=== PATIENT | male | born 1940 | race Caucasian/White ===

== ENCOUNTER 2017-08-27 10:22 | Observation (INO) | payer OTHER ==
[2017-08-27] VITALS (10 sets, daily range): BP systolic 115–151; BP diastolic 60–80
[~2017-08-27] VITALS: Ht 182.9 cm; Wt 108.0 kg
--- NOTE | ~2017-08-27 | H ---
[address] [address] HISTORY AND PHYSICAL Name: ASHLEE KAUR Room: [address] Jerome Hoffmann#: [id number] Admission: 08/27/17 Attend Phys: Jonatan Barnes MD, F Discharge: 08/28/17 Date of : 38 Report #: [id number] THIS REPORT FOR: //name// Please refer to the History and Physical performed in the physician's office. By: [id number] Records Staff ARGELIA /FRANCO
[~2017-08-27 10:22] MED LIST: ASPIR 8181 MG PO; BENTYL 10 MG CA10 M1 PO; CRESTOR10 MG PO; FISH OIL 1,001000 M2 PO; LOPRESSOR100 M1 PO; LOSARTAN-HCTZ1 EAC3 PO; MULTI-VITAMIN1 EAC5 PO; NITROGLYCERIN0.4 MG SUBLING; NITROSTAT0.4 M1 SL; PLAVIX 75 MG TA75 M1 PO; TYLENOL325 MG PO; ZANTAC 150MG T150 MG PO
[2017-08-27 11:11] LABS: HEMATOCRIT 42.8 % (42.0-52.0); HEMOGLOBIN 14.4 gm/dL (14.0-18.0); MCHC 33.6 g/dL (28.0-37.0); MCV 92.1 fL (80.0-100.0); RBC 4.64 mil/uL (4.50-6.00); RDW-CV 12.8 % (10.5-14.5); WBC 8.8 thou/uL (4.0-11.0)
[2017-08-27 11:19] LABS: ANION GAP 6 mmol/L (7-16); BUN 23 mg/dL (7-18); CALCIUM 9.4 mg/dL (8.5-10.1); CHLORIDE 102 mmol/L (98-107); CO2 33 mmol/L (21-32); CREATININE 0.9 mg/dL (0.6-1.3); GLUCOSE 107 mg/dL (70-99); POTASSIUM 4.1 mmol/L (3.5-5.1); SODIUM 141 mmol/L (136-145)
[2017-08-27 11:20] LABS: APTT 26.5 Seconds (25.0-31.3)
[2017-08-27 11:23] LABS: ALBUMIN 3.5 g/dL (3.4-5.0); ALKALINE PHOSPHATASE 65 U/L (46-116); CHOLESTEROL 115 mg/dL (<200); HDL CHOLESTEROL 50 mg/dL (>40); LDL CHOLESTEROL 45 mg/dL (<100); SGOT 22 U/L (15-37); SGPT 29 U/L (30-65); TC:HDL 2.3 Ratio (Not establshd); TOTAL BILIRUBIN 0.4 mg/dL (<0.1-1.0); TOTAL PROTEIN 7.3 g/dL (6.4-8.2); TRIGLYCERIDE 101 mg/dL (<150); VLDL 20 mg/dL (<40)
[2017-08-27 11:24] LABS: SERUM ASSESSMENT Clear
--- NOTE | 2017-08-27 17:15 | CARD ---
[address] [address] CARDIAC CATH REPORT Name: ASHLEE KAUR Room: [address] M.R.#: [id number] Admission: 08/27/17 Attend Phys: Jonatan Barnes MD, F Discharge: Date of : 38 Report #: [id number] THIS REPORT FOR: //name// APPROVED REPORT Patient Details Patient Status: Out-Patient Room #: The patient is a 77 year-old male Event Personnel Dusty eJnsen Instrumentation Designer, Alia Ham RN Director Of Vital Statistics, Aaron Moran (R) Monitor, Cathy Hauser Blick, David Copy Clerk Procedures Performed cath pci Indication Stable angina , Positive stress test Risk Factors Coronary Artery Disease Previous Procedures/Diagnoses Previous PCI Admission/Lab Medications/Medications given during procedure Platelet Aff. Inhib., Heparin Unfract. Procedure Narrative The patient was brought electively to the Cardiac Catheterization Laboratory and was prepped and draped in a sterile manner. The right wrist was infiltrated with 1% Lidocaine subcutaneous anesthesia. A Slender Glidesheath sheath was inserted into the Right Radial Artery. Coronary angiography was performed using coronary diagnostic catheters. The right coronary system was accessed and visualized with a Diagnostic catheter. The left coronary system was accessed and visualized with a Diagnostic catheter. The left ventricle was accessed and visualized with a Diagnostic catheter. Left ventricular/Aortic Valve gradient assessed via catheter pullback. Left ventriculogram was performed in MOE projection. Closure device was deployed with a 6 Fr Vasc-Band Lng 27cm. The patient tolerated the procedure well and there were no complications associated with the procedure. There [place] [address] CARDIAC CATH REPORT Name: ASHLEE KAUR Room: [address]#: [id number] Admission: 08/27/17 Attend Phys: Jonatan Barnes MD, F Discharge: Date of : 38 Report #: [id number] Intraoperative Conscious Sedation Sedation start time: 12:38 Case end Time: 13:47 Fentanyl 25 mcg Versed 1 mg Fluoro Time: 17.2 minutes Dose: DAP [id number] cGycm2 3260 mGy Contrast Type and Amount: Omnipaque 300 ml Diagnostic Cath Left Main short,normal LAD mid 60-70 Diagonal 1 50% Circumflex stent widely patent <10% ISR, distal moderate disease 40-50% OM1 60% OM2 normal Right Coronary mid 70- 75%, stented proximal portion with 60% instent restenosis R PDA 60% RPLV sluggish timi2 flow Left Ventriculography The left ventricle is normal in size with normal contractility. The left ventricular ejection fraction is estimated to be 50-55%. Left ventricular wall motion abnormalities are present. There is no mitral insufficiency. inf. hypokinesis IVUS Anticoagulation was achieved with . Heparin Hemodynamics The aortic pressure is 103/56 mmHg with a mean of 78 mmHg. The left ventricular pressure is 97/2 mmHg with a mean of mmHg. The left ventricular end diastolic pressure is 7 mmHg. There was no gradient across the aortic valve upon pullback. Pullback from the left ventricle to the aorta revealed no gradient across the aortic valve. PCI Technique Lesion Anticoagulation was achieved with Heparin. Patient was preloaded with Heparin IV 5000 units. Percutaneous coronary intervention was performed on the distal right coronary artery. A 6F AL 1 Guide Catheter was used to engage the ostium. A IG: BMW 190cm Interventional Guidewire was used [place] [address] CARDIAC CATH REPORT Name: ASHLEE KAUR Room: [address] [facility]#: [id number] Admission: 08/27/17 Attend Phys: Jonatan Barnes MD, F Discharge: Date of : 38 Report #: [id number] BALLOON DILATION A Balloon catheter Mini Trek RX 2.0 X 8 was inserted and inflated up to 15.00atm for 13seconds. STENT DEPLOYMENT A drug-eluting stent Xience Alpine RX 3.0 X 12 was inserted and inflated up to 18.00atm for 22seconds. Additional Inflation: 22.00atm for 18seconds. Additional Inflation: 22.00atm for 10seconds. POST STENT DEPLOYMENT BALLOON DILATION A Balloon catheter NC Trek RX 3.25X8 was inserted and inflated up to 24.00atm for 27seconds. Additional Inflation: 24.00atm for 17seconds. Additional Inflation: 26.00atm for 21seconds. PCI Technique Lesion Anticoagulation was achieved with Heparin. iv aggrastat was given BALLOON DILATION A Balloon catheter was inserted and inflated up to 16atm for 15seconds. Repeat angiography revealed the following post-dilatation results: 50% stenosis. STENT DEPLOYMENT A drug-eluting stent 3.0 x 12 mm was inserted and inflated up to 20atm for 15seconds. Repeat angiography revealed the following post-stent deployment results: 40% stenosis. a 3.25 x 8 mm noncompliant balloon was inserted into the stent and inflated up to 22 mm Hg POST STENT DEPLOYMENT BALLOON DILATION A Balloon catheter NC Trek RX 3.5 X 8 was inserted and inflated up to 25.00atm for 34seconds. Repeat angiography revealed the following post-dilatation results: 30% stenosis. Additional Inflation: 25.00atm for 18seconds. Additional Inflation: 25.00atm for 15seconds. Final angiography reveals 30 % stenosis with DAVIDA 3 flow. COMMENTS Despite using a large noncompliant balloon and inflating to high atmospheres, the stent continued to demonstrate a residual 30% stenosis. It was decided not to make further efforts at expanding this stent in this vessel which was resistant to using a noncomplaint balloon and inflating to high pressures. There was a concern that additional efforts could lead to dissection [place] [address] CARDIAC CATH REPORT Name: ASHLEE KAUR Room: [address] [place] [facility]#: [id number] Admission: 08/27/17 Attend Phys: Jonatan Barnes MD, F Discharge: Date of : 38 Report #: [id number] be adequate. Conclusion 1. No restenosis of the stent in the circumflex artery. 2. Moderate restenosis of the stent in the proximal RCA. There was a significant stenosis in the distal rca beyond the acute margin, and the distal rca filled retrograde from collateral arising from the left coronary 3. Successful placement of a drug eluting stent in the distal rca, although residual stenosis was noted despite using a large noncompliant balloon inflated to high pressures. Recommendations Cardiac Rehabilitation Referral Aggressive Medical Therapy Medications Administered Clopidogrel Diagnostic Cath Approved by: Dusty Jensen MD Date/Time: <ELECTRONICALLY SIGNED> By: Jonatan Barnes MD, [facility] 08/27/17 1714 1714 1714Dmelva Barnes MD, FAC /INF
--- NOTE | 2017-08-27 18:50 | NUR ---
PT ARRIVED TO UNIT AT 1415 VIA [facility] INSULATION STAFF. PT A & O X4. PT ABLE TO TRANSFER FROM [facility] TO BATHROOM WITH SBA. PT AMBULATES WITH STEADY GAIT. TELEMONITOR TRACING SR WITH 1ST DEG BLOCK. PT HAS R RADIAL SITE WRISTBAND THAT IS C/D/I. AIR RELEASED WITHOUT ANY BLEEDING OR EVIDENCE OF HEMATOMA. PT ADHERENT TO KEEPING R ARM STATIONARY. ASSESSMENT COMPLETE. FLUIDS INFUSING PER ORDER. PT HEATHER DIET. VOIDING APPROPRIATELY. PT HAS NO C/O PAIN, SOA/NAUSEA OR DISTRESS. NEEDED ITEMS AND CALL LIGHT IN REACH.
[2017-08-28] VITALS: BP 134/69; BP 139/59
--- NOTE | 2017-08-28 03:09 | NUR ---
ASSUMED CARE OF PT AT 1900. PT IS ALERT AND ORIENTED. VSS. PERRLA. NO COMPLAINTS OF PAIN. NO BLEEDING OR HEMATOMA AT CATH SITE. PT IS IN SINUS RYTHM ON THE TELEMETRY. PT IS RESTING COMFORTABLY IN BED. RESPIRATIONS ARE EVEN AND NONLABORED. WILL CONTINUE TO MONITOR PT.
[2017-08-28 04:00] VITALS: BP 121/69
[2017-08-28 05:26] LABS: HEMATOCRIT 37.4 % (42.0-52.0); HEMOGLOBIN 12.8 gm/dL (14.0-18.0); MCH 31.5 pg (26.0-34.0); MCHC 34.4 g/dL (28.0-37.0); MCV 91.6 fL (80.0-100.0); MPV 9.4 fl. (7.2-11.1); RBC 4.08 mil/uL (4.50-6.00); RDW-CV 13.2 % (10.5-14.5); WBC 7.8 thou/uL (4.0-11.0)
[2017-08-28 08:00] VITALS: BP 131/74
[2017-08-28 09:14] VITALS: BP 131/74
--- NOTE | 2017-08-28 11:53 | EKG ---
[place] [address] ELECTROCARDIOGRAM REPORT Name: ASHLEE KAUR Room: [address] M.R.#: [id number] Admission: 08/27/17 Attend Phys: Jonatan Barnes MD, F Discharge: Date of : 38 Report #: [id number] THIS REPORT FOR: //name// [facility] Test Date: 2017-08-27 Test Time: 11:15:34 Pat Name: ASHLEE KAUR Department: Room: [facility] Gender: M Digital Asset Manager: : 1940 Requested By: Dusty Jensen Order Number: [id number] Reading MD: Jonatan Barnes Measurements Intervals [place] Rate: 53 P: -7 MD: 265 QRS: -17 QRSD: 96 T: -12 QT: 431 QTc: 405 Interpretive Statements Sinus rhythm Prolonged MD interval Low voltage, precordial leads Abnormal R-wave progression, early transition Left ventricular hypertrophy Borderline T abnormalities, inferior leads Compared to ECG 11/24/2015 07:48:39 Low QRS voltage now present T-wave abnormality still present Electronically Signed On 08-28-2017 11:53:30 PAINTING AND COATING WORKER by Jonatan Barnes [email or web address] <ELECTRONICALLY SIGNED> By: Jonatan Barnes MD, FAC 08/28/17 1153 1115 1115 Jonatan Barnes MD, FAC /EPI
--- NOTE | 2017-08-28 11:56 | EKG ---
[place] [address] ELECTROCARDIOGRAM REPORT Name: ASHLEE KAUR [address]#: [id number] Admission: 08/27/17 Attend Phys: Jonatan Barnes MD, F Discharge: 08/28/17 Date of : 38 Report #: [id number] THIS REPORT FOR: //name// [facility] Test Date: 2017-08-27 Test Time: 14:57:31 Pat Name: ASHLEE KAUR Department: Room: [address] Gender: M Quality Consultant: : 1940 Requested By: Jonatan Barnes Order Number: [id number] Robert MD: Jonatan Barnes Measurements Intervals [place] Rate: 55 P: 14 ND: 277 QRS: -21 QRSD: 97 T: -15 QT: 416 QTc: 398 Interpretive Statements Sinus bradycardia Prolonged ND interval Left ventricular hypertrophy Inferior infarct, old Electronically Signed On 08-28-2017 11:56:38 CLINICAL PSYCHIATRIST by Jonatan Barnes [email or web address] <ELECTRONICALLY SIGNED> By: Jonatan Barnes MD, [facility] 08/28/17 1156 1457 145 Jonatan Barnes MD, FACC /EPI
--- NOTE | 2017-08-28 12:14 | EKG ---
[place] [address] ELECTROCARDIOGRAM REPORT Name: ASHLEE KAUR Room: [address]R.#: [id number] Admission: 08/27/17 Attend Phys: Jonatan Barnes MD, F Discharge: 08/28/17 Date of : 38 Report #: [id number] THIS REPORT FOR: //name// [facility] Test Date: 2017-08-28 Test Time: 08:37:33 Pat Name: ASHLEE KAUR Department: Room: [address] Gender: M Toll Gate Keeper: : 1940 Requested By: Jonatan Barnes Order Number: [id number] Robert MD: Jonatan Barnes Measurements Intervals [place] Rate: 71 P: 19 KS: 250 QRS: -21 QRSD: 98 T: -5 QT: 393 QTc: 428 Interpretive Statements Sinus rhythm Prolonged KS interval Left ventricular hypertrophy Borderline T abnormalities, inferior leads Electronically Signed On 08-28-2017 12:14:36 HYDRAULIC GOVERNOR ASSEMBLER by Jonatan Barnes [email or web address] <ELECTRONICALLY SIGNED> By: Jonatan Barnes MD, [facility] 08/28/17 1214 6 6 Jonatan Barnes MD, FACC /EPI
--- NOTE | 2017-08-29 13:28 | D ---
[address] [address] DISCHARGE SUMMARY Name: ASHLEE KAUR Room: [address] Jerome Hoffmann#: [id number] Admission: 08/27/17 Attend Phys: Jonatan Barnes MD, F Discharge: 08/28/17 Date of : 38 Report #: [id number] THIS REPORT FOR: //name// CC: Jonatan Alcaraz DATE OF SERVICE: 08/28/2017 DISCHARGE DIAGNOSES: 1. Angina pectoris. 2. Coronary artery disease. 3. Palpitations. 4. Hypertension. 5. Hyperlipidemia. CONSULTANTS: None. PROCEDURES: Left heart catheterization with placement of a single drug-eluting stent in the distal right coronary artery via the radial approach. HISTORY OF PRESENT ILLNESS: The patient is a 77-year-old white male, retired strength and conditioning coach who was brought to the outpatient department to undergo a repeat cardiac catheterization. The patient had a previous stent placed in circumflex artery in at [facility] when he presented with a myocardial infarction. Repeat heart catheterization in 2014, at [facility] by Dr. Cosby who placed a drug-eluting stent in the circumflex and right coronary artery. He has a long history of palpitations, a previous monitor showed only PACs. I actually performed a repeat heart catheterization in November 2015, after the patient had an abnormal nuclear stress test. Results at that time showed normal left ventricular function. There was a 70% narrowing in the mid LAD, the stent in the circumflex had no restenosis, although the proximal edge had an 80% stenosis, the right coronary stent had 60% restenosis, the distal stent had 60% restenosis. Since the nuclear stress test showed ischemia of the lateral wall, I placed a single drug-eluting stent in the circumflex. He tolerated the procedure well and was continued on Plavix. The patient recently saw my partner, Dr. Jensen in the cardiology clinic. He continues to have occasional left-sided chest pain. It is not necessarily related to exertion or meals. Dr. Jensen recommended a nuclear stress test that was performed on August 18. This showed reversible inferior defect, ejection fraction 70%. Dr. Jensen recommended repeat cardiac catheterization. He was brought to the outpatient department at this time. PAST MEDICAL HISTORY: Otherwise significant for previous right carotid endarterectomy years ago. He has had cataract extraction, knee surgery, hypertension, [place] [address] DISCHARGE SUMMARY Name: ASHLEE KAUR [address] [id number] Admission: 08/27/17 Attend Phys: Jonatan Barnes MD, F Discharge: 08/28/17 Date of : 38 Report #: [id number] MEDICATIONS: Include aspirin, Plavix, losartan, HCTZ, metoprolol, ranitidine, and Crestor. ALLERGIES: He has no known drug allergies. PHYSICAL EXAMINATION: VITAL SIGNS: Blood pressure 130/60, pulse 70. CHEST: Clear to auscultation. HEART: Regular rate and rhythm. ABDOMEN: Soft, nontender. EXTREMITIES: Had no edema. SKIN: Warm and dry. LAB WORK: Sodium 141, creatinine 0.9, glucose 107. Liver function studies were normal. Cholesterol 115, triglycerides 101, HDL 50, LDL 45. White blood cell count 4.6 and hemoglobin 14.4. HOSPITAL COURSE: The patient was brought to the outpatient department. He underwent a cardiac catheterization by Dr. Jensen from the right radial artery. Results, the LAD had a 60% stenosis. The stent in the circumflex was widely patent. The right coronary artery proximal stent had 60% restenosis. There was an edge restenosis of the stent in the mid right coronary artery of 80%. The distal posterolateral branch had competitive flow from the left coronary artery. Ejection fraction 50%. He was then given heparin and I placed a new drug-eluting stent in the distal right coronary artery. He was given a bolus of Aggrastat. The stent was difficult to expand despite using 2 large sized noncompliant balloons at high pressure. The final result had 30% residual stenosis. I decided not to perform additional balloon angioplasty for fear of dissection. He tolerated the procedure well and had no further chest pain, arrhythmias or heart failure. The results were discussed with the patient and his . He is felt to have no significant restenosis of the stent in the circumflex or LAD. There was moderate restenosis of the stent in the proximal right coronary artery. There was a significant edge restenosis of the stent beyond the acute margin with retrograde filling of the distal right coronary artery. I then placed a new drug-eluting stent in the distal right coronary artery. The following day, he had no hematoma in the right wrist. At the time of discharge, blood pressure 130/70, his pulse is 60. Additional lab work included a followup hemoglobin of 12.8 and his troponin is 0.06. His ECG showed a sinus rhythm with no significant ST or T-wave change. The patient was discharged on his home medications included aspirin 81 mg a day, Plavix 75 mg a day, losartan/HCT 100/25 a day, metoprolol tartrate mg a day, Crestor 10 mg a day. He was discharged to return to the care of Dr. Franky Eid for routine medical care. I did recommend he enroll in cardiac rehabilitation. His prognosis is guarded due to his diffuse coronary artery disease. He is [facility] [address] [place] [address] DISCHARGE SUMMARY Name: ASHLEE KAUR Room: [address]#: [id number] Admission: 08/27/17 Attend Phys: Jonatan Barnes MD, F Discharge: 08/28/17 Date of : 38 Report #: [id number] scheduled to see Dr. Jensen in the cardiology clinic on September 24. If he continued to have palpitations, he may require a ekg monitor tech. <ELECTRONICALLY SIGNED> By: Jonatan Barnes MD, FACC 08/29/17 1328 1112 1157Dajone Barnes MD, FACWes /nt
== END 2017-08-28 11:55 | disposition home or self-care (01) ==
LOC: M.CL 10:22 → M.TBA-CV 13:55 → M.2W 13:55
PROVIDERS: Internal Medicine Cardiovascular Disease; ADMIT Internal Medicine Cardiovascular Disease
DX: I25.118 Atherosclerotic heart disease of native coronary artery with other forms of angina pectoris (principal); R00.2 Palpitations; I10 Essential (primary) hypertension; E78.5 Hyperlipidemia, unspecified; I65.23 Occlusion and stenosis of bilateral carotid arteries; I47.9 Paroxysmal tachycardia, unspecified; Z95.5 Presence of coronary angioplasty implant and graft; Z82.49 Family history of ischemic heart disease and other diseases of the circulatory system